=== PATIENT | female | born 1950 | race Caucasian/White ===

== ENCOUNTER → 2017-10-13 | Outpatient (CLI) | payer MEDICARE ==
[2017-10-13 17:51] LABS: BASO % 0.8 %; BASO ABS # 0.04 K/uL (0-0.2); EOS % 4.2 %; EOS ABS # 0.21 K/uL (0-0.5); HEMATOCRIT 39.8 % (37-47); HEMOGLOBIN 13.6 g/dL (12.0-16.0); IG# 0.01 K/uL (0.00-0.02); LYMPH % 34.7 %; LYMPH ABS # 1.73 K/uL (1.2-3.4); MEAN CORPUSCULAR HEMOGLOBIN 33.5 pg (25-34); MEAN CORPUSCULAR HGB CONC 34.2 g/dl (32-36); MEAN PLATELET VOLUME 10.1 fL (7.4-10.4); MONO % 8.8 %; MONO ABS # 0.44 K/uL (0.11-0.59); NEUT % 51.3 %; NEUT ABS # 2.56 K/uL (1.4-6.5); PLATELET COUNT 271 K/uL (130-400); RED CELL DISTRIBUTION WIDTH CV 12.5 % (11.5-14.5); WHITE BLOOD COUNT 4.99 K/uL (4.8-10.8)
[2017-10-13 18:03] LABS: BLOOD UREA NITROGEN 15 mg/dl (7-18); CALCIUM 9.2 mg/dl (8.5-10.1); CARBON DIOXIDE 29 mmol/L (21-32); CREATININE 0.86 mg/dl (0.60-1.20); GLUCOSE 91 mg/dl (70-99); PHOSPHORUS 3.3 mg/dl (2.5-4.9); POTASSIUM 4.3 mmol/L (3.5-5.1); SODIUM 138 mmol/L (136-145)
== END | disposition home or self-care (01) ==
LOC: C.LABMFLN 16:24
PROVIDERS: ATTEND Family Medicine
DX: I10 Essential (primary) hypertension (principal)